=== PATIENT | female | born 1940 | race Two or more races ===

== ENCOUNTER 2021-06-10 18:12 | Emergency (ER) | payer OTHER ==
[~2021-06-10] VITALS: Ht 152.4 cm; Wt 67.1 kg
[2021-06-10] MEDS ORDERED: SYMBICORT 16010.2 GM IH (18:46)
[2021-06-10] MEDS ORDERED: LISINOPRIL20 MG PO (18:47)
[2021-06-10] MEDS ORDERED: SERTRALINE HCL50 MG PO (18:47)
[2021-06-10] MEDS ORDERED: SIMVASTATIN40 MG PO (18:47)
[2021-06-10] MEDS ORDERED: EZETIMIBE10 MG PO (18:47)
[2021-06-10] MEDS ORDERED: DONEPEZIL HCL5 MG PO (18:47)
[2021-06-10] MEDS ORDERED: CLORAZEPATE D3.75 MG PO (18:47)
[2021-06-10] MEDS ORDERED: METFORMIN HCL500 M4 PO (18:48)
[2021-06-10] MEDS ORDERED: XOPENEX0.63 MG/3 IH (21:09)
[2021-06-10] MEDS ORDERED: CLARITIN10 M1 PO (21:09)
[2021-06-10] MEDS ORDERED: TUSNEL LIQUID178 ML PO (21:09)
[2021-06-10] MEDS ORDERED: ZITHROMAX500 MG PO (21:09)
== END 2021-06-10 21:18 | disposition home or self-care (01) ==
LOC: ER 18:12
DX: J45.909 Unspecified asthma, uncomplicated (principal); E11.9 Type 2 diabetes mellitus without complications; Z79.84 Long term (current) use of oral hypoglycemic drugs; I10 Essential (primary) hypertension; Z20.822 Contact with and (suspected) exposure to COVID-19; Z88.0 Allergy status to penicillin

== ENCOUNTER 2021-09-16 09:20 | Emergency (ER) | payer OTHER ==
[~2021-09-16] VITALS: Ht 152.4 cm; Wt 62.6 kg
[~2021-09-16 09:20] MED LIST: CLARITIN10 M1 PO; CLORAZEPATE D3.75 MG PO; DONEPEZIL HCL5 MG PO; EZETIMIBE10 MG PO; LISINOPRIL20 MG PO; METFORMIN HCL500 M4 PO; SERTRALINE HCL50 MG PO; SIMVASTATIN40 MG PO; SYMBICORT 16010.2 GM IH; TUSNEL LIQUID178 ML PO; XOPENEX0.63 MG/3 IH; ZITHROMAX500 MG PO
== END 2021-09-16 12:46 | disposition home or self-care (01) ==
LOC: ER 09:20
DX: S70.01XA Contusion of right hip, initial encounter (principal); W18.30XA Fall on same level, unspecified, initial encounter; Y93.9 Activity, unspecified; Y92.018 Other place in single-family (private) house as the place of occurrence of the external cause; Y99.9 Unspecified external cause status; E11.9 Type 2 diabetes mellitus without complications; Z79.84 Long term (current) use of oral hypoglycemic drugs; Z88.0 Allergy status to penicillin

== ENCOUNTER 2022-04-09 05:40 | Emergency (ER) | payer OTHER ==
[~2022-04-09] VITALS: Ht 147.3 cm; Wt 62.6 kg
== END 2022-04-09 07:35 | disposition home or self-care (01) ==
LOC: ER 05:40
DX: L29.9 Pruritus, unspecified (principal); Z88.0 Allergy status to penicillin; E11.9 Type 2 diabetes mellitus without complications; Z79.84 Long term (current) use of oral hypoglycemic drugs; I10 Essential (primary) hypertension